=== PATIENT | male | born 1960 | race Caucasian/White ===

== ENCOUNTER 2018-05-24 10:53 | Emergency (ER) | payer BC ==
[~2018-05-24] VITALS: Ht 182.9 cm; Wt 98.4 kg
[2018-05-24 11:19] VITALS: BP 135/81
[2018-05-24] MEDS ORDERED: PHENERGAN 25 MG25 M1 PO (11:24)
[2018-05-24] MEDS ORDERED: FLONASE 0.05%50 MCG NASAL (11:24)
[2018-05-24] MEDS ORDERED: TESSALON PERLE100 MG PO (11:24)
== END 2018-05-24 11:38 | disposition home or self-care (01) ==
LOC: ER 10:53
DX: J06.9 Acute upper respiratory infection, unspecified (principal); R19.7 Diarrhea, unspecified